=== PATIENT | female | born 1995 | race Caucasian/White ===

== ENCOUNTER 2019-03-06 06:18 | Emergency (ER) | payer OTHER ==
[2019-03-06] MEDS ORDERED: OLANZAPINE 10 MG VIAL IM (08:00)
[2019-03-06 08:08] LABS: ADD MAN DIFF? NO
[2019-03-06 08:16] LABS: BASOPHIL # 0.1 10^3/ul (0.0-0.1); BASOPHILS % 0.4 % (0.0-2.0); EOSINOPHILS # 0.2 10^3/ul (0.0-0.5); EOSINOPHILS % 1.9 % (0.0-7.0); HEMATOCRIT 36.8 % (37.0-47.0); HEMOGLOBIN 12.7 g/dl (12.0-16.0); LYMPHOCYTES # 2.5 10^3/ul (0.8-2.9); LYMPHOCYTES % 19.2 % (15.0-51.0); MEAN CORPUSCULAR HEMOGLOBIN 31.9 pg (29.0-33.0); MEAN CORPUSCULAR HGB CONC 34.5 g/dl (32.0-37.0); MEAN CORPUSCULAR VOLUME 92.5 fl (82.0-101.0); MEAN PLATELET VOLUME 9.5 fl (7.4-10.4); MONOCYTE # 0.9 10^3/ul (0.3-0.9); MONOCYTES % 6.7 % (0.0-11.0); NEUTROPHIL # 9.3 10^3/ul (1.6-7.5); NEUTROPHILS % 71.5 % (39.0-77.0); PLATELET COUNT 419 10^3/UL (140-415); RED BLOOD COUNT 3.98 10^6/ul (4.20-5.40); RED CELL DISTRIBUTION WIDTH 12.2 % (11.5-14.5)
[2019-03-06 08:16] LABS: WHITE BLOOD COUNT 12.9 10^3/ul (4.8-10.8)
[2019-03-06] MEDS: HALOPERIDOL 5 MG INJ IM (08:20)
[2019-03-06] MEDS ORDERED: LORAZEPAM 2 MG INJ (08:20)
[2019-03-06] MEDS ORDERED: DIPHENHYDRAMINE 50 MG INJ (08:22)
[2019-03-06] MEDS: LORAZEPAM 2 MG INJ IM (08:24)
[2019-03-06] MEDS: DIPHENHYDRAMINE 50 MG INJ IM (08:24)
[2019-03-06 08:36] LABS: ACETAMINOPHEN < 10.0 ug/ml (10.0-30.0); ALANINE AMINOTRANSFERASE 26 IU/L (13-69); ALBUMIN 4.6 g/dl (3.3-4.9); ALBUMIN/GLOBULIN RATIO 1.24; ALKALINE PHOSPHATASE 73 IU/L (42-121); ANION GAP 12 (5-13); ASPARTATE AMINO TRANSFERASE 31 IU/L (15-46); BILIRUBIN,INDIRECT 0.6 mg/dl (0-1.1); BILIRUBIN,TOTAL 0.6 mg/dl (0.2-1.3); BLOOD UREA NITROGEN 5 mg/dl (7-20); CALCIUM 9.8 mg/dl (8.4-10.2); CARBON DIOXIDE 22 mmol/L (21-31); CHLORIDE 101 mmol/L (97-110); CREATININE 0.62 mg/dl (0.44-1.00); Estimated GFR > 60 mL/min (>60); GLUCOSE 92 mg/dl (70-220); POTASSIUM 4.3 mmol/L (3.5-5.1); SALICYLATE < 1.0 mg/dl (5.0-30.0); SODIUM 135 mmol/L (135-144); TOTAL PROTEIN 8.3 g/dl (6.1-8.1)
[2019-03-06 09:36] LABS: AMPHETAMINE/METHAMPHETAMINE Negative (NEGATIVE); BARBITURATES Negative (NEGATIVE); BENZODIAZEPINES Negative (NEGATIVE); CANNABINOIDS Negative (NEGATIVE); COCAINE Positive (NEGATIVE); OPIATES Negative (NEGATIVE)
[2019-03-06] MEDS: SOD CHLORIDE 0.9% 1,000 ML IV (11:00)
[2019-03-06] MEDS: BACITRACIN 0.9 GM OINT TOP (12:00)
== END 2019-03-06 13:22 | disposition home or self-care (01) ==
LOC: E/R 06:18
DX: S20.312A Abrasion of left front wall of thorax, initial encounter (principal); S30.811A Abrasion of abdominal wall, initial encounter; S61.411A Laceration without foreign body of right hand, initial encounter; R40.2142 Coma scale, eyes open, spontaneous, at arrival to emergency department; R51 Headache; S61.216A Laceration without foreign body of right little finger without damage to nail, initial encounter; V42.5XXA Car driver injured in collision with two- or three-wheeled motor vehicle in traffic accident, initial encounter
CPT/HCPCS: 70450; 71045; 73130-RT; 74177; 80053; 80307; 81025; 85025; 96372; 99291-25